=== PATIENT | female | born 2000 | race Caucasian/White ===

== ENCOUNTER 2021-06-09 13:32 | Emergency (ER) | payer OTHER ==
[~2021-06-09 13:32] MED LIST: FLAGYL500 MG PO; K-DUR20 MEQ PO; KEFLEX500 MG PO; MACROBID100 MG PO; PHENERGAN25 M1 PO; PRENATAL FORMU1 EACH PO; REGLAN10 MG PO
[2021-06-09 14:32] LABS: BILIRUBIN 1+ mg/dL (NEGATIVE); BLOOD NEGATIVE Ery/uL (NEGATIVE); CLARITY CLEAR (CLEAR); COLOR YELLOW (YELLOW); GLUCOSE (U) NORMAL (NORMAL); LEUKOCYTES 1+ Leu/uL (NEGATIVE); NITRITE NEGATIVE (NEGATIVE); PROTEIN TRACE (LOW) mg/dL (NEGATIVE); SPECIFIC GRAVITY >=1.030 (1.001-1.030); UROBILINOGEN 0.2 mg/dL (0.2-1.0)
[2021-06-09 14:32] LABS: BASOPHIL 0.1 % (0-2); EOSINOPHIL 0 % (0-5); HCT 36.1 % (37.0-47.0); HGB 11.5 g/dl (12.5-16.0); LYMPHOCYTE 11.2 % (15-48); MCH 25.3 pg (25.0-31.0); MCHC 31.9 g/dL (32.0-36.0); MCV 79.3 fL (78.0-100.0); MONOCYTE 3.1 % (0-12); MPV 10.9 fL (6.0-9.5); NEUTROPHIL 85.3 % (41-80); NRBC 0; PLT 267 K/uL (150-400); RBC 4.55 M/uL (4.20-5.40); WBC 7.3 K/uL (4.0-10.5)
[2021-06-09 14:47] LABS: BACTERIA 1+; MUCOUS TRACE
[2021-06-09 14:48] LABS: BUN/CREAT RATIO (CALC) 13.8 RATIO; CREATININE 0.65 mg/dL (0.51-0.95); POTASSIUM 3.7 mmol/L (3.5-5.1)
== END 2021-06-09 16:23 | disposition home or self-care (01) ==
LOC: FER 13:32
PROVIDERS: Emergency Medicine
DX: O21.0 Mild hyperemesis gravidarum (principal); Z3A.10 10 weeks gestation of pregnancy
CPT/HCPCS: 36415; 80048; 81001; 85025; 87076; 87088; 87186; J2405; J7030